=== PATIENT | female | born 1960 | race Caucasian/White ===

== ENCOUNTER → 2025-07-09 07:52 | Outpatient (REF) | payer OTHER, SELFPAY | LOC: HWRAD 07:52 | PROVIDERS: ATTENDING PHYSICIAN Physician Assistant Medical | DX: Z13.820 Encounter for screening for osteoporosis (principal); Z12.31 Encounter for screening mammogram for malignant neoplasm of breast | CPT/HCPCS: 77063; 77067; 77080 ==